=== PATIENT | female | born 1995 | race Two or more races ===

== ENCOUNTER 2016-08-22 07:06 | Emergency (ER) | payer SELFPAY ==
[~2016-08-22 07:06] MED LIST: ANAPROX DS550 MG PO; COLACE100 M1 PO; DICLOFENAC SODI50 M1 PO; FERROUS SULFAT324 MG PO; IBUPROFEN800 M1 PO; MEDROL4 M2 PO; MOTRIN40 MG/ML PO; TRIPNIP TOP; TYLENOL WITH C1 EACH PO; VITAFOL-OB+DHA1 EACH PO
[2016-08-22 07:53] LABS: BASO % 0.5 % (0-2); EOS % 2.4 % (0-7); EOSINOPHIL ABSOLUTE COUNT 0.1 tho/cmm (0.0-0.7); HCT-HEMATOCRIT 37.3 % (34.0-49.0); HGB-HEMOGLOBIN 12.3 gm/dl (12.0-15.5); LYMPH ABSOLUTE COUNT 1.5 tho/cmm (0.8-4.5); MCH (MEAN CORPUSCULAR HGB) 27.3 pg (28.0-32.0); MCV (MEAN CELL VOLUME) 82.7 fl (82.0-96.0); MEAN PLATELET VOLUME 10.6 cmc (9.4-12.4); MONO % 8.3 % (0-12); MONOCYTE ABSOLUTE COUNT 0.4 tho/cmm (0.0-1.2); NEUTROPHIL ABSOLUTE COUNT 2.3 tho/cmm (1.6-8.0); NEUTROPHIL-AUTOMATED 2.3 tho/cmm (1.6-8.0); NEUTROPHILS % 53.8 % (40-80); PLATELET COUNT 225 tho/cmm (150-450); RED BLOOD COUNT 4.51 mil/cmm (4.00-5.20); RED CELL DISTRIBUTION WIDTH 13.6 % (12.4-16.4); WHITE BLOOD COUNT 4.2 tho/cmm (4.0-10.0)
[2016-08-22 08:08] LABS: ALB/GLOB RATIO 1.1 (0.8-2.0); ALBUMIN 3.9 g/dl (3.5-5.0); ALKALINE PHOSPHATASE 103 U/L (33-138); ALT/SGPT 14 U/L (12-78); ANION GAP 14 mmol/L (0-20); AST/SGOT 16 U/L (10-40); BILIRUBIN,TOTAL 0.2 mg/dl (0-1.5); BLOOD UREA NITROGEN 9 mg/dl (6-24); CALCIUM 8.5 mg/dl (8.5-10.5); CARBON DIOXIDE-VENOUS 24 mmol/L (22-32); CHLORIDE 110 mmol/l (96-110); CREATININE 0.48 mg/dl (0.50-1.10); GLUCOSE 96 mg/dL (70-110); POTASSIUM 3.9 mmol/L (3.7-5.1); SODIUM 144 mmol/L (135-145); eGFR VALUE FOR BLACK >90 mL/Min
[2016-08-22 08:10] LABS: PREGNANCY-SERUM NEGATIVE (NEGATIVE)
[2016-08-22] MEDS ORDERED: ZOFRAN4 M2 PO (09:06)
== END 2016-08-22 09:50 ==
LOC: EDMED 07:06
PROVIDERS: Emergency Medicine
DX: I95.1 Orthostatic hypotension (principal); R11.10 Vomiting, unspecified; E86.0 Dehydration
CPT/HCPCS: J2405; J7030